=== PATIENT | male | born 1940 | race Caucasian/White ===

== ENCOUNTER 2017-12-01 12:26 | Emergency (ER) | payer OTHER, MEDICARE ==
--- NOTE | 2017-12-01 13:00 | EDPHY ---
H & P Stated Complaint: SUBJECTIVE FEVER/CHILLS/NIGHT SWEATS Time Seen by Provider: 12/01/17 13:00 HPI/ROS: CHIEF COMPLAINT: Shaking chills HISTORY OF PRESENT ILLNESS: The patient is referred to the emergency department from the urgent care center for evaluation of shaking chills last night. The patient was seen at the urgent care prior to arrival. He reportedly had a negative flu test and urinalysis. The patient denies measured fever at home. He denies any abdominal pain, vomiting, diarrhea, cough, sore throat, dysuria, arthralgias or other acute complaints. Patient has a remote history of treated pancreatic cancer. The patient has not been on recent antibiotics or had any recent infections. No noteworthy travel outside the [place] or recent insect bites. REVIEW OF SYSTEMS: A comprehensive 10 point review of systems is otherwise negative aside from elements mentioned in the history of present illness. Source: Patient Exam Limitations: No limitations - Personal History Current Tetanus Diphtheria and Acellular Pertussis (TDAP): Yes Tetanus Vaccine Date: 2013 - Medical/Surgical History Hx Asthma: No Hx Chronic Respiratory Disease: No Hx Diabetes: No Hx Cardiac Disease: No Hx Renal Disease: No Hx Cirrhosis: No Hx Alcoholism: No Hx HIV/AIDS: No Hx Splenectomy or Spleen Trauma: No Other PMH: neuropathy hands and feet//CBD obstruction w/jaundice, common bile duct stent PANCREATIC CANCER/WHIPPLE - Social History Smoking Status: Former smoker - Physical Exam Exam: General Appearance: Alert, no distress Eyes: Pupils equal and round no pallor or injection ENT, Mouth: Mucous membranes moist Respiratory: There are no retractions, lungs are clear to auscultation Cardiovascular: Regular rate and rhythm Gastrointestinal: Abdomen is soft and nontender, no masses, bowel sounds normal Neurological: A&O, normal motor function, normal sensory exam, normal cranial nerves Skin: Warm and dry, no rashes Musculoskeletal: Neck is supple nontender Extremities: symmetrical, full range of motion Constitutional: Initial Vital Signs Temperature (C) 36.6 C 12/01/17 12:31 Heart Rate 67 12/01/17 12:31 Respiratory Rate 17 12/01/17 12:31 Blood Pressure 114/66 12/01/17 12:31 O2 Sat (%) 96 12/01/17 12:31 O2 Delivery Mode Room Air Allergies/Adverse Reactions: amoxicillin trihydrate [From Augmentin] Allergy (Intermediate, Verified 10/27/ 18 12:30) Hives potassium clavulanate [From Augmentin] Allergy (Intermediate, Verified 12/01/17 12:30) Hives Home Medications: Medication Instructions Recorded Gabapentin [Neurontin 300 MG (*)] 300 mg PO HS 04/11/14 Multivitamins [Multivitamin (*)] 1 each PO DAILY 04/11/14 Magnesium Hydroxide [Milk of 30 ml PO DAILY PRN #0 udcup 04/19/14 Magnesia (*)] Zolpidem Tartrate [Ambien 5MG (*)] 5 - 10 mg PO HS PRN #0 tab 04/19/14 Ondansetron Odt [Zofran Odt 4 mg 4 mg PO Q6 PRN 05/01/14 (*)] Sennosides/Docusate Sodium 2 tab PO HS 05/01/14 [Senokot-S] Zantac 12/01/17 levOFLOXACIN [levAQUIN (*)] 750 mg PO DAILY #7 tab 12/01/17 Medical Decision Making ED Course/Re-evaluation: The patient is an immunocompetent male who presents to the ED for evaluation of chills. Urinalysis was negative prior to arrival. The patient's flu test was negative. He is quite well-appearing upon arrival. He is afebrile with stable vital signs. There is no obvious source of a bacterial infection noted clinically. Screening laboratory studies and blood cultures have been ordered. The patient has a slight leukocytosis. He has mildly elevated inflammatory markers. The patient is well-appearing. I did trent Mercer. Given his history of a Whipple procedure he is at risk for cholangitis. He has no abdominal pain or tenderness currently. We have obtained blood cultures. The patient received IV Levaquin in the emergency department. He will be discharged home with oral Levaquin. Patient is advised to take that medication for the next 7 days. He understands that he will return to the emergency department should his blood cultures became positive. The patient will return to the ED immediately for any increasing pain, vomiting or other concerns. Differential Diagnosis: Differential diagnosis considered includes bacteremia, sepsis, dehydration, viral syndrome, metabolic abnormality, peritonitis, cholangitis - Data Points Laboratory Results: Laboratory Results 12/01/17 12:45 12/01/17 12:45 12/01/17 12/01/17 12/01/17 13:50 12:55 12:45 WBC RBC Hgb Hct MCV MCH MCHC RDW Plt Count MPV Neut % (Auto) Lymph % (Auto) [place] % (Auto) Eos % (Auto) Baso % (Auto) Nucleat RBC Rel Count Absolute Neuts (auto) Absolute Lymphs (auto) Absolute Monos (auto) Absolute Eos (auto) Absolute Basos (auto) Absolute Nucleated RBC Immature Gran % Immature Gran # ESR VBG Lactic Acid 1.7 mmol/L mmol/L (0.7-2.1) Sodium Potassium Chloride Carbon Dioxide Anion Gap BUN Creatinine Estimated GFR Glucose Calcium Total Bilirubin 1.4 mg/dL mg/dL (0.1-1.4) Conjugated Bilirubin 0.4 mg/dL mg/dL (0.0-0.5) Unconjugated Bilirubin 1.0 mg/dL mg/dL (0.0-1.1) AST 120 IU/L H IU/L (17-59) ALT 98 IU/L H IU/L (21-72) Alkaline Phosphatase 79 IU/L IU/L (38-126) C-Reactive Protein Total Protein 7.0 g/dL g/dL (6.3-8.2) Albumin 4.1 g/dL g/dL (3.5-5.0) Lipase 15 IU/L L IU/L (23-300) Urine Color YELLOW Urine Appearance CLEAR Urine pH 5.0 (5.0-7.5) Ur Specific [place] 1.010 (1.002-1.030) Urine Protein NEGATIVE (NEGATIVE) Urine Ketones NEGATIVE (NEGATIVE) Urine Blood NEGATIVE (NEGATIVE) Urine Nitrate NEGATIVE (NEGATIVE) Urine Bilirubin NEGATIVE (NEGATIVE) Urine Urobilinogen NEGATIVE EU EU (0.2-1.0) Ur Leukocyte Esterase NEGATIVE (NEGATIVE) Urine Glucose NEGATIVE (NEGATIVE) 12/01/17 12/01/17 12:45 12:45 WBC 10.49 10^3/uL H 10^3/uL (3.80-9.50) RBC 4.75 10^6/uL 10^6/uL (4.40-6.38) Hgb 14.6 g/dL g/dL (13.7-17.5) Hct 42.1 % % (40.0-51.0) MCV 88.6 fL fL (81.5-99.8) MCH 30.7 pg pg (27.9-34.1) MCHC 34.7 g/dL g/dL (32.4-36.7) RDW 13.7 % % (11.5-15.2) Plt Count 204 10^3/uL 10^3/uL (150-400) MPV 10.2 fL fL (8.7-11.7) Neut % (Auto) 82.9 % H % (39.3-74.2) Lymph % (Auto) 8.7 % L % (15.0-45.0) [place] % (Auto) 7.8 % % (4.5-13.0) Eos % (Auto) 0.0 % L % (0.6-7.6) Baso % (Auto) 0.3 % % (0.3-1.7) Nucleat RBC Rel Count 0.0 % % (0.0-0.2) Absolute Neuts (auto) 8.70 10^3/uL H 10^3/uL (1.70-6.50) Absolute Lymphs (auto) 0.91 10^3/uL L 10^3/uL (1.00-3.00) Absolute Monos (auto) 0.82 10^3/uL H 10^3/uL (0.30-0.80) Absolute Eos (auto) 0.00 10^3/uL L 10^3/uL (0.03-0.40) Absolute Basos (auto) 0.03 10^3/uL 10^3/uL (0.02-0.10) Absolute Nucleated RBC 0.00 10^3/uL 10^3/uL (0-0.01) Immature Gran % 0.3 % % (0.0-1.1) Immature Gran # 0.03 10^3/uL 10^3/uL (0.00-0.10) ESR 32 MM/HR H MM/HR (0-20) VBG Lactic Acid Sodium 137 mEq/L mEq/L (135-145) Potassium 4.6 mEq/L mEq/L (3.3-5.0) Chloride 103 mEq/L mEq/L (97-110) Carbon Dioxide 21 mEq/l L mEq/l (22-31) Anion Gap 13 mEq/L mEq/L (6-14) BUN 20 mg/dL mg/dL (7-23) Creatinine 0.9 mg/dL mg/dL (0.7-1.3) Estimated GFR > 60 Glucose 163 mg/dL H mg/dL (70-100) Calcium 9.6 mg/dL mg/dL (8.5-10.4) Total Bilirubin Conjugated Bilirubin Unconjugated Bilirubin AST ALT Alkaline Phosphatase C-Reactive Protein 77.9 mg/L H mg/L (<10.0) Total Protein Albumin Lipase Urine Color Urine Appearance Urine pH Ur Specific [place] Urine Protein Urine Ketones Urine Blood Urine Nitrate Urine Bilirubin Urine Urobilinogen Ur Leukocyte Esterase Urine Glucose Departure - Departure Disposition: Home, Routine, Self-Care Clinical Impression: Fever Condition: Good Instructions: Fever in Adults (ED) Additional Instructions: 1. Given your history of a Whipple procedure we will start the antibiotics which she should take for the next 7 days. 2. We will check your blood cultures. If they become positive the will likely return to the hospital for further evaluation. 3. Please return to the ED sooner for any increasing abdominal pain, vomiting or other concerns. Referrals: Roxie Polanco MD [Primary Care Provider] - As per Instructions
[2017-12-01 13:12] LABS: PLATELET COUNT 204 10^3/uL (150-400)
[2017-12-01 16:54] VITALS: BP 117/71
== END 2017-12-01 16:52 | disposition home or self-care (01) ==
DX: R50.9 Fever, unspecified (principal); Z85.07 Personal history of malignant neoplasm of pancreas; Z87.891 Personal history of nicotine dependence
CPT/HCPCS: 96365; 99284; J1956